=== PATIENT | male | born 1995 | race Caucasian/White ===

== ENCOUNTER 2017-01-23 10:16 | Emergency (ER) | payer OTHER ==
[2017-01-23] MEDS ORDERED: KETOROLAC TROMETHAMINE 30 MG/ML VIAL IV ONE (10:38)
[2017-01-23] MEDS ORDERED: ONDANSETRON HCL/PF 2 MG/ML VIAL IV ONE (10:38)
[2017-01-23] MEDS ORDERED: NORMAL SALINE 1,000 ML IV ONE ×2 (10:38→12:31)
--- OUTSIDE RECORDS SUMMARY | 2017-01-23 10:42 | XMS REPORT | Continuity of Care Document ---
:1995 Author Organization [facility] ([facility]) Address [address] [place] [address] Phone [phone] Care Team Providers Name Role Phone Unavailable Primary Care Provider Unavailable Source Comments This disclosure is being made pursuant to the Care Everywhere program, applicable federal and state laws, and may not contain all informaitonavailable regarding this patient.[facility] ([facility]) Active Allergies and Adverse Reactions Not on File Current Medications Not on file Active Problems Not on file Social History Tobacco Use Types Packs/Day Years Used Date Never Assessed Plan of Care Health Maintenance Due Date Last Done Comments Hepatitis B Vaccine (1 of 3 - Primary Series) 1996 HPV Vaccine (1 of 3 - Male 3 Dose Series) 2007 Tdap Vaccine 2007 Meningococcal Vaccine (1 of 1) 2012 Lipid Disorder Screening 2014 MMR Vaccine 2014 Td Vaccine 2014 Varicella Vaccine (1 of 2 - Adult - No Evidence of 2014 Immunity) Influenza Vaccine: Seasonal (#1) 05/14/2016 Results from Last 3 Months Not on file
[2017-01-23] MEDS ORDERED: ONDANSETRON HCL/PF 2 MG/ML VIAL ONE (10:58)
[2017-01-23] MEDS ORDERED: KETOROLAC TROMETHAMINE 30 MG/ML VIAL ONE (10:58)
[2017-01-23 11:30] LABS: Hemoglobin 15.1 gm/dL (13.5-18.0); Mean Cell Volume 86.7 fl (78-100); Mean Corpuscular Hemoglobin 29.1 pg (27-31); Mean Corpuscular Hgb Conc 33.6 g/dl (32-36); Mean Platelet Volume 11.1 fl (6.0-9.5); Neutrophil # 19.5 K/mm3 (1.3-6.0); Neutrophil % 82.8 % (42-75.0); Platelet Count 227 K/mm3 (150-450); Red Blood Count 5.19 M/mm3 (4.7-6.0); Red Cell Distribution Width 13.2 % (11.5-14.0); White Blood Count 23.6 K/mm3 (4.0-10.5)
[2017-01-23 11:43] LABS: Albumin * 4.7 gm/dl (3.4-5.0); Anion Gap 19.2 mmol/L (6.8-13.8); BUN/Creatinine Ratio 12.6 (9.0-21.6); Bilirubin, Total 0.8 mg/dL (0.0-1.1); Ca. Corrected For Albumin 8.4 mg/dL (8.4-10.2); Calcium * 9.3 mg/dL (7.9-10.9); Carbon Dioxide 22.1 mmol/L (24-32.6); Potassium 3.3 mmol/L (3.4-4.6); Total Protein 7.4 gm/dL (6.2-8.2)
--- NOTE | 2017-01-23 11:55 | ERNOTE ---
Medical Problem HPI - Narrative Date of Service: 01/23/17 - General Chief Complaint: Nausea/Vomiting Time Seen by Provider: 01/23/17 10:35 Source: patient Exam Limitations: no limitations - Immun/Allergies/Home Medications Immunizations: IMMUNIZATION HX Immunizations Up to Date Yes History of Influenza Vaccine No Hx Pneumococcal Vaccination More Information Required Allergies/Adverse Reactions: Allergies amoxicillin [Amoxicillin] Allergy (Verified 01/23/17 10:30) montelukast sodium [From Singulair] Allergy (Verified 01/23/17 10:30) Home Medications: HOME MEDICATIONS ALPRAZolam [Xanax] 0.25 mg PO DAILY PRN 01/23/17 [Last Taken Unknown] Ondansetron [Zofran Odt] 4 mg PO Q6H PRN #20 tab 01/23/17 [Last Taken Unknown] - History of Present History Narrative: Pt. comes in with severe nausea and vomiting after taking 2500mg of Niacin tomorrow to try and pass a drug test as he smoked marijuana this weekend. Pt. states that he has had this occur in the past and had the same symptoms when he has taken too much Niacin. Pt. denies any specific abdominal pain, fever, or recent illness. Pt. denies any SOB, CP, diarrhea, muscle aches Review of Systems - Review of Systems Constitutional: Present: no symptoms reported. Absent: recent illness, fever, chills, weakness, fatigue, malaise EYE: Present: no symptoms reported ENT: Present: no symptoms reported Respiratory: Present: no symptoms reported. Absent: shortness of breath, cough , wheezing Cardiology: Present: no symptoms reported Gastrointestinal/Abdominal: Present: nausea, vomiting, abdominal pain - diffuse Genitourinary: Present: no symptoms reported Musculoskeletal: Present: no symptoms reported. Absent: back pain, joint pain All Other Systems: All systems neg except as marked - Patient's Past Medical History Patient History - Medical: No pertinent hx Patient History - Cardiac/Respiratory: No pertinent hx Patient History - Cancer: No Hx of Cancer Patient History - Surgical Procedures: Back Surgery Patient History - Other: None - Social History Living Situations: home Abuse History: No History of abuse Psych History: No pertinent hx Alcohol Use: occasionally Drug Use: none - Immunizations Immunizations Up to Date: Yes Hx Pneumococcal Vaccination: More Information Required to Determine History of Influenza Vaccine: No Physical Exam - Physical Exam General Appearance: Present: wd/wn, alert, no apparent distress Eye Exam: Normal inspection: bilateral, PERRL: bilateral, EOMI: bilateral Ears, Nose, Throat: Present: normal ENT inspection, normal pharynx Neck: Present: normal inspection, nontender. Absent: lymphadenopathy (R), lymphadenopathy (L) Respiratory: Present: no respiratory distress, normal breath sounds, no accessory muscle use, chest nontender, lungs clear Cardiovascular/Chest: Present: regular rate, rhythm, no murmur, normal peripheral pulses Gastrointestinal/Abdominal: Present: normal bowel sounds, nontender, nondistended, soft, no organomegaly Back Exam: Present: normal inspection Extremity Exam: Present: normal inspection Neurological Exam: Present: alert, oriented, normal mood/affect, no motor/ sensory deficits Skin Exam: Present: normal color, warm/dry. Absent: pallor, skin rash ED Progress - Results and Orders Patient's Lab Results:: I have reviewed the patient's lab results. Results and Orders: feel that elevated WBC maybe acute stress reaction and demargination due to inflammatory process from nausea and vomiting. Discussed case with poison control and they feel pt. does not need extra monitoring if symptoms are controlled and he is given IVF. - Vital Signs Patient's Vital Signs:: I have reviewed the patient's vital signs. Vital Signs: Vital Signs 01/23/17 10:28 Temperature 36.1 C L Pulse Rate 94 Respiratory 12 Rate Blood Pressure 147/83 O2 Sat by Pulse 95 Oximetry - Progress/Reassessment Chief Complaint: Nausea/Vomiting Progress:: Pain free at discharge Departure - Departure Clinical Impression: Adverse drug effect Disposition: Home self-care Condition: Good Instructions: Nausea, Adult Additional Instructions: Please follow up with primary provider for recheck of your electrolytes in 2-3 days. Referrals: Ace Watson MD [Primary Care Provider] - Prescriptions: Ondansetron [Zofran Odt] 4 mg PO Q6H PRN #20 tab PRN Reason: Nausea
[2017-01-23] MEDS ORDERED: diphenhydrAMINE HCL 50 MG/ML VIAL IV ONE (12:31)
[2017-01-23] MEDS ORDERED: diphenhydrAMINE HCL 50 MG/ML VIAL ONE (12:33)
[2017-01-23 13:42] VITALS: BP 109/51
== END 2017-01-23 13:36 | disposition home or self-care (01) ==
LOC: ER 10:16
DX: R11.2 Nausea with vomiting, unspecified (principal); T46.7X5A Adverse effect of peripheral vasodilators, initial encounter